=== PATIENT | male | born 1950 | race Caucasian/White ===

== ENCOUNTER 2020-04-10 06:07 | Day surgery (SDC) | payer OTHER ==
[2020-04-07 11:44] LABS: BASOPHILS # (AUTO) 0.1 X10'3 (0-0.2); BASOPHILS % (AUTO) 0.7 % (0-1); EOSINOPHILS # (AUTO) 0.8 X10'3 (0-0.9); EOSINOPHILS % (AUTO) 10.4 % (0-6); HEMATOCRIT 41.3 % (42.0-52.0); HEMOGLOBIN 13.8 g/dl (14.0-17.9); LYMPHOCYTES # (AUTO) 1.5 X10'3 (1.1-4.8); LYMPHOCYTES % (AUTO) 20.6 % (21-51); MEAN CORPUSCULAR HEMOGLOBIN 31.9 PG (27.0-31.0); MEAN CORPUSCULAR HGB CONC 33.5 g/dL (33.0-36.5); MEAN CORPUSCULAR VOLUME 95.2 FL (78-98); MEAN PLATELET VOLUME 6.9 FL (7.4-10.4); MONOCYTES # (AUTO) 0.7 X10'3 (0-0.9); MONOCYTES % (AUTO) 8.9 % (2-12); NEUTROPHILS # (AUTO) 4.4 X10'3 (1.8-7.7); NEUTROPHILS % (AUTO) 59.4 % (42-75); PLATELET COUNT 237 X10'3 (140-440); RED BLOOD COUNT 4.34 X10'6 (4.70-6.10); RED CELL DISTRIBUTION WIDTH 14.1 % (11.5-14.5); WHITE BLOOD COUNT 7.4 X10'3 (4.5-11.0)
[2020-04-07 11:55] LABS: ALBUMIN 4.2 G/DL (3.4-5.0); ANION GAP 6 (8-16); BLOOD UREA NITROGEN 16 MG/DL (7-18); CALCIUM 10.9 MG/DL (8.5-10.1); CHLORIDE 105 MMOL/L (99-107); CREATININE 0.94 MG/DL (0.60-1.10); GLUCOSE 98 MG/DL (70-104); POTASSIUM 4.6 MMOL/L (3.5-5.1); SODIUM 140 MMOL/L (135-145); TOTAL CARBON DIOXIDE 29.2 MMOL/L (24-32); eGFR 79 ML/MIN
[2020-04-07 11:57] LABS: PARTIAL THROMBOPLASTIN TIME 25 SECONDS (22-32)
[~2020-04-10] VITALS: Ht 170.2 cm; Wt 88.9 kg
[2020-04-10] VITALS (13 sets, daily range): BP systolic 91–170; BP diastolic 54–86
[2020-04-10] MEDS ORDERED: LISI10TA4 PO (06:26)
[2020-04-10] MEDS ORDERED: PRAV40TA3 PO (06:26)
[2020-04-10] MEDS ORDERED: AMLO5TAB16 PO (06:26)
[2020-04-10] MEDS ORDERED: ALEN70TA80 PO (06:26)
[2020-04-10] MEDS ORDERED: OMEP-50 PO (06:26)
[2020-04-10] MEDS ORDERED: MOME0.242 INH (06:30)
[2020-04-10] MEDS ORDERED: ZAFI20TA14 PO (06:30)
[2020-04-10] MEDS ORDERED: ALBU6.7H9 INH (06:30)
[2020-04-10] MEDS ORDERED: LORazepam 0.5 MG tablet PO PRN (06:35)
[2020-04-10] MEDS ORDERED: diphenhydrAMINE 25mg capsule PO PRN (06:35)
[2020-04-10] MEDS ORDERED: LIDOcaine/PRILOcaine 5gm cream TP ONE (06:35)
[2020-04-10] MEDS: normal saline 1,000 ML IV SCH ×2 (06:50→10:26)
[2020-04-10] MEDS ORDERED: midazolam 2 mg/2 ml injection ONE (07:13)
[2020-04-10] MEDS ORDERED: verapamil 2.5 mg/ml inj IV ONE (07:13)
[2020-04-10] MEDS ORDERED: nitroGLYCERIN-Tridil 50MG/D5W 250 ML IV ONE (07:13)
[2020-04-10] MEDS ORDERED: fentaNYL/PF 50MCG/1 ML 2ML syringe ONE (07:13)
[2020-04-10] MEDS ORDERED: LIDOcaine 1% (10mg/ml)w/preservative injection 20ml MDV ONE (07:14)
[2020-04-10] MEDS ORDERED: iohexol 350 MG/ML 50ML vial IV ONE (07:14)
[2020-04-10] MEDS ORDERED: iohexol 350MG/ML 100ml bottle IV ONE ×2 (07:14→08:15)
[2020-04-10] MEDS ORDERED: heparin 1,000unit/ml 10ml vial 10 ML ONE (07:42)
[2020-04-10 08:13] LABS: ISTAT HGB ART 12.9 g/dl (14.0-18.0); ISTAT Hct ART 38 %PCV (42-52); ISTAT O2 SATURATION ARTERIAL 96 % (95-98); ISTAT SOURCE ART
[2020-04-10] MEDS ORDERED: heparin 25,000 UNIT/250ml bag 250 ML IV ONE (08:14)
[2020-04-10] MEDS ORDERED: clopidogrel 300mg tablet ONE (08:53)
--- NOTE | 2020-04-10 09:15 | NUR ---
Pt back in room. VS stable as charted. Pt iv infusing Heparin as ordered. Pt denies pain, Rt radial vasc band in place, no s/s of bleeding or infection. Will continue to monitor.
[2020-04-10] MEDS ORDERED: HYDROcodone/acetaminophen 5mg/325mg tablet PO PRN (09:45)
[2020-04-10] MEDS ORDERED: HYDROcodone/acetaminophen 10/325mg tab PO PRN (09:45)
--- NOTE | 2020-04-10 10:00 | NUR ---
DC'd heparin as ordered. Pt finished eating, 100% of breakfast tray. VS stable as charted.
--- NOTE | 2020-04-10 10:33 | NUR ---
Problems reprioritized. Patient report given, questions answered & plan of care reviewed with Meron RAY.
[2020-04-11] MEDS ORDERED: clopidogrel 75mg tablet PO SCH (08:00)
== END 2020-04-10 16:24 | disposition home or self-care (01) ==
LOC: SSTAY O 06:07
PROVIDERS: ATTEND Internal Medicine Cardiovascular Disease
DX: R94.39 Abnormal result of other cardiovascular function study (principal); I25.10 Atherosclerotic heart disease of native coronary artery without angina pectoris; I10 Essential (primary) hypertension; E78.49 Other hyperlipidemia; G47.30 Sleep apnea, unspecified; E66.9 Obesity, unspecified; Z68.30 Body mass index [BMI] 30.0-30.9, adult; Z79.01 Long term (current) use of anticoagulants; Z79.899 Other long term (current) drug therapy; Z98.890 Other specified postprocedural states; Z72.89 Other problems related to lifestyle; Z82.49 Family history of ischemic heart disease and other diseases of the circulatory system; Z80.9 Family history of malignant neoplasm, unspecified
CPT/HCPCS: 36415; 76937; 80048; 82803; 85014; 85025; 85347; 85610; 85730; 93005; 93460; 99152; 99153; C1725; C1751; C1769; C1874; C1894; C9600; J1644; J2001; J2250; J3010; J7030; Q0163; Q9967; A4620; A5120; J3490